=== PATIENT | male | born 1940 | race Caucasian/White ===

== ENCOUNTER 2016-11-18 06:48 | Day surgery (SDC) | payer MEDICARE, BC ==
[~2016-11-18 06:48] MED LIST: Lactated Ringers 1,000 ML IV SCH
[2016-11-18] MEDS ORDERED: Propofol 200 MG/20 ML SDV IV ONE (08:00)
[2016-11-18] MEDS ORDERED: ePHEDrine 50 MG/ML SDV IV ONE (08:00)
[2016-11-18] MEDS ORDERED: Ondansetron 4 MG/2 ML SDV IVPUSH ONE (08:00)
[2016-11-18] MEDS ORDERED: Succinylcholine 200 MG/10 ML MDV IV ONE (08:00)
[2016-11-18] MEDS ORDERED: Midazolam 1 MG/ML 2 ML SDV IV ONE (08:00)
[2016-11-18] MEDS ORDERED: Lidocaine 2% 100 MG/5 ML Syringe IVPUSH ONE (08:00)
[2016-11-18] MEDS ORDERED: fentaNYL 100 MCG/2 ML SDV IV ONE (08:00)
--- NOTE | 2016-11-18 09:11 | PCM.OPNOTE ---
- General Post-Op/Procedure Note Date of Surgery/Procedure: 11/18/16 Operative Procedure(s): c scope with bx Findings: ascending colon polyp x2 transverse colon polyp x1 Pre Op Diagnosis: hx of colon polyps Post-Op Diagnosis: Same Anesthesia Technique: General ET Tube Primary Surgeon: Uche Tanner Anesthesia Provider: Mendy Toscano Pathology: ascending colon polyp x2 transverse colon polyp Complications: None Condition: Good Free Text/Narrative:: see dictation
[2016-11-18 11:05] VITALS: BP 121/65
--- NOTE | 2016-11-18 15:29 | OR ---
DATE OF OPERATION: 11/18/2016 SURGEON: Uche Tanner MD PROCEDURE PERFORMED: Colonoscopy with cold forceps biopsy. PREOPERATIVE DIAGNOSIS: History of colon polyps. POSTOPERATIVE DIAGNOSIS: Colon polyps x2 of the ascending colon and transverse colon. 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 DESCRIPTION OF OPERATION: After an excellent general anesthetic was administered, the patient was placed in the left lateral decubitus position. Digital rectal exam was performed. No marked abnormality was noted. The flexible colonoscope was inserted and advanced to roughly fci down the ascending colon. Efforts to manipulate it even further beyond that point were not successful due to the patient's redundant colon. This persisted despite of moving and repositioning the patient and applying abdominal wall pressure. The scope was removed and an additional scope was inserted again reaching the same point. As we were able to make no progress beyond this point, we elected to slowly withdraw the scope and proceed with our exam. The prep of the visible colon was unremarkable. There were two polyps of the ascending colon. These were biopsied and removed with small biopsy forceps. Transverse colon was remarkable for a small 3 mm polyp. Descending colon was unremarkable. Sigmoid demonstrated some sigmoid diverticulosis, otherwise, unremarkable. Rectum and anus were unremarkable. The colon was deflated, and the scope was removed. The patient tolerated the procedure well and was taken to recovery room in good condition. /[id number] /[facility]ITAL
== END 2016-11-18 11:00 | disposition home or self-care (01) ==
LOC: FB.SDS 06:48
PROVIDERS: ATTEND Surgery
DX: Z12.11 Encounter for screening for malignant neoplasm of colon (principal); D12.2 Benign neoplasm of ascending colon; D12.3 Benign neoplasm of transverse colon; K57.30 Diverticulosis of large intestine without perforation or abscess without bleeding; I10 Essential (primary) hypertension; K21.9 Gastro-esophageal reflux disease without esophagitis; Z86.010 Personal history of colon polyps; Z88.8 Allergy status to other drugs, medicaments and biological substances; Z79.01 Long term (current) use of anticoagulants; Z79.899 Other long term (current) drug therapy; Z98.890 Other specified postprocedural states; Z87.891 Personal history of nicotine dependence
CPT/HCPCS: 00810; 45380; 88305; J0330; J2250; J2405; J2704; J3010; J7120